=== PATIENT | male | born 1930 | race Caucasian/White ===

== ENCOUNTER 2017-09-20 10:35 | Inpatient (IN) | payer OTHER, BC ==
[~2017-09-20] VITALS: Ht 190.5 cm; Wt 97.0 kg
[2017-09-20 11:20] LABS: Basophils # (auto) 0.1 uL; Basophils % (auto) 0.8 % (0.0-2.0); Eosinophils # (auto) 0 uL; Eosinophils % (auto) 0.6 % (0.0-7.0); Hematocrit 38.3 % (41.0-53.0); Hemoglobin 12.6 g/dL (13.5-17.5); Lymphocytes # (auto) 1.4 uL; Lymphocytes % (auto) 17.5 % (10.0-50.0); Mean Corpuscular Hemoglobin 33.1 pg (28.0-32.0); Mean Corpuscular Hgb Conc. 32.8 g/dL (32.0-36.0); Mean Corpuscular Volume 100.6 fL (80.0-100.0); Monocytes # (auto) 0.9 uL; Monocytes % (auto) 11.4 % (0.0-12.0); Neutrophils # (auto) 5.5 uL; Neutrophils % (auto) 69.7 % (37.0-80.0); Nucleated Red Blood Cells % 0.1 %; Platelet Count (auto) 204 10^3/uL (140-450); Red Cell Distribution Width 15.8 % (11.8-14.3); White Blood Cell 7.9 10^3/uL (4.4-10.8)
[2017-09-20 12:04] LABS: Albumin 3.1 g/dL (3.4-5.0); BUN/Creatinine Ratio 31.3; Bilirubin, Total 0.6 mg/dL (0.2-1.0); Calcium 8.5 mg/dL (8.5-10.1); Potassium 3.9 mmol/L (3.5-5.1); Total Protein 6.3 g/dL (6.4-8.2)
[2017-09-20] MEDS ORDERED: FUROSEMIDE 40 MG/4 ML VIAL IV ONE (15:15)
[2017-09-20] MEDS ORDERED: ONDANSETRON HCL 4 MG/2 ML VIAL IV PRN (22:45)
[2017-09-20] MEDS ORDERED: ALBUTEROL SULF 2.5 MG/0.5ML(0.5%) NEB SOLN NEB PRN (22:45)
[2017-09-20] MEDS ORDERED: IPRATROPIUM BROM 0.5 MG/2.5ML INH SOL NEB PRN (22:45)
[2017-09-20] MEDS ORDERED: MORPHINE SULFATE 8mg/ml INJ SDV IV PRN (22:45)
[2017-09-20] MEDS ORDERED: HYDROcodone-ACET 5/325MG TAB PO PRN (22:45)
[2017-09-20] MEDS ORDERED: ACETAMINOPHEN 500 MG TAB PO PRN (22:45)
[2017-09-21] VITALS (8 sets, daily range): BP systolic 113–142; BP diastolic 52–70
[2017-09-21 03:54] LABS: Urine Bacteria NONE SEEN /hpf (None Seen); Urine Blood Negative /uL (Negative); Urine Specific Gravity 1.007 (1.001-1.035); Urine WBC <1 /hpf (0 - 3)
[2017-09-21 06:50] LABS: Basophils # (auto) 0 uL; Basophils % (auto) 0.6 % (0.0-2.0); Eosinophils # (auto) 0 uL; Eosinophils % (auto) 0.6 % (0.0-7.0); Hematocrit 38.8 % (41.0-53.0); Hemoglobin 12.9 g/dL (13.5-17.5); Lymphocytes # (auto) 1.6 uL; Lymphocytes % (auto) 21.1 % (10.0-50.0); Mean Corpuscular Hemoglobin 33.5 pg (28.0-32.0); Mean Corpuscular Hgb Conc. 33.4 g/dL (32.0-36.0); Mean Corpuscular Volume 100.4 fL (80.0-100.0); Monocytes # (auto) 0.7 uL; Monocytes % (auto) 9.7 % (0.0-12.0); Neutrophils # (auto) 5.2 uL; Nucleated Red Blood Cells % 0.1 %; Platelet Count (auto) 183 10^3/uL (140-450); Red Blood Cells 3.86 10^6/uL (4.5-5.90); Red Cell Distribution Width 15.8 % (11.8-14.3); White Blood Cell 7.6 10^3/uL (4.4-10.8)
[2017-09-21 07:01] LABS: Albumin 3.2 g/dL (3.4-5.0); BUN/Creatinine Ratio 33.8; Potassium 4.1 mmol/L (3.5-5.1)
[2017-09-21 07:03] LABS: Bilirubin, Total 0.7 mg/dL (0.2-1.0); Total Protein 6.4 g/dL (6.4-8.2)
[2017-09-21 09:24] LABS: INR 2.01 (0.9-1.15); Partial Thromboplastin Time 30.4 sec (23.78-33.04); Prothrombin Time 20.7 sec (9.27-12.13)
[2017-09-21] MEDS: LISINOPRIL 20 MG TAB PO SCH (10:29)
[2017-09-21] MEDS: FUROSEMIDE 40 MG/4 ML VIAL IV SCH (10:29)
[2017-09-21] MEDS: LOSARTAN POTASSIUM 25 MG TAB PO SCH (10:30)
[2017-09-21] MEDS ORDERED: VANCOMYCIN PER PHARMACY 0 MG IV SCH (12:15)
[2017-09-21] MEDS ORDERED: VANCOMYCIN 1GM/250ML 250 ML IV ONE (12:30)
[2017-09-21] MEDS: CLINDAMYCIN 300MG IV 50 ML IV SCH ×2 (15:00→21:35)
[2017-09-21] MEDS ORDERED: WARFARIN SODIUM 2 MG TAB PO ONE (17:00)
[2017-09-21] MEDS ORDERED: LISI40TA PO (20:03)
[2017-09-21] MEDS ORDERED: FURO40TA4 PO (20:04)
[2017-09-21] MEDS ORDERED: LISI-646 PO (20:04)
[2017-09-21] MEDS ORDERED: LOSA25TA9 PO (20:05)
[2017-09-21] MEDS ORDERED: WARF5TAB71 PO (20:05)
[2017-09-21] MEDS ORDERED: METO-169 PO (20:06)
[2017-09-21] MEDS ORDERED: GUAI100S6 PO (20:07)
[2017-09-21] MEDS ORDERED: DIPH-506 PO (20:07)
[2017-09-22 05:06] VITALS: BP 140/79
[2017-09-22] MEDS: CLINDAMYCIN 300MG IV 50 ML IV SCH ×2 (05:24→14:00)
[2017-09-22 06:18] LABS: INR 2.16 (0.9-1.15); Partial Thromboplastin Time 33.4 sec (23.78-33.04); Prothrombin Time 22.1 sec (9.27-12.13)
[2017-09-22 06:23] LABS: Basophils # (auto) 0 uL; Basophils % (auto) 0.6 % (0.0-2.0); Eosinophils # (auto) 0 uL; Eosinophils % (auto) 0.6 % (0.0-7.0); Monocytes # (auto) 0.9 uL
[2017-09-22 06:27] LABS: Hematocrit 35.9 % (41.0-53.0); Hemoglobin 12.1 g/dL (13.5-17.5); Lymphocytes # (auto) 1.4 uL; Lymphocytes % (auto) 18.4 % (10.0-50.0); Mean Corpuscular Hemoglobin 33.7 pg (28.0-32.0); Mean Corpuscular Hgb Conc. 33.8 g/dL (32.0-36.0); Mean Corpuscular Volume 99.6 fL (80.0-100.0); Monocytes % (auto) 11.6 % (0.0-12.0); Neutrophils # (auto) 5.2 uL; Neutrophils % (auto) 68.8 % (37.0-80.0); Platelet Count (auto) 165 10^3/uL (140-450); Red Blood Cells 3.61 10^6/uL (4.5-5.90); Red Cell Distribution Width 15.6 % (11.8-14.3); White Blood Cell 7.6 10^3/uL (4.4-10.8)
[2017-09-22 06:33] LABS: Potassium 4.1 mmol/L (3.5-5.1)
[2017-09-22 06:40] LABS: Calcium 8.6 mg/dL (8.5-10.1)
[2017-09-22 06:44] LABS: BUN/Creatinine Ratio 39.3
[2017-09-22 08:00] VITALS: BP 129/64
[2017-09-22] MEDS: FUROSEMIDE 40 MG/4 ML VIAL IV SCH (10:00)
[2017-09-22] MEDS ORDERED: VANCOMYCIN 1GM/250ML 250 ML IV SCH (10:00)
[2017-09-22] MEDS: LOSARTAN POTASSIUM 25 MG TAB PO SCH (10:01)
[2017-09-22] MEDS: LISINOPRIL 20 MG TAB PO SCH (10:02)
[2017-09-22 12:09] VITALS: BP 129/64
[2017-09-22 13:00] VITALS: BP 124/78
[2017-09-22] MEDS ORDERED: WARFARIN SODIUM 2 MG TAB PO ONE (17:00)
== END 2017-09-22 14:48 | disposition home or self-care (01) | DRG 592 ==
LOC: ER 10:45 → TELE-WESTW 10:46
PROVIDERS: ADMIT Nurse Practitioner Family; ATTEND Internal Medicine
DX: L97.828 Non-pressure chronic ulcer of other part of left lower leg with other specified severity (principal); I50.43 Acute on chronic combined systolic (congestive) and diastolic (congestive) heart failure; D64.9 Anemia, unspecified; J44.9 Chronic obstructive pulmonary disease, unspecified; W22.8XXA Striking against or struck by other objects, initial encounter; I11.0 Hypertensive heart disease with heart failure; Z87.891 Personal history of nicotine dependence; Z95.0 Presence of cardiac pacemaker; Z88.0 Allergy status to penicillin; Z86.718 Personal history of other venous thrombosis and embolism; Y93.89 Activity, other specified; Y92.89 Other specified places as the place of occurrence of the external cause; Y99.8 Other external cause status
CPT/HCPCS: 36415; 71046; 80048; 80053; 80202; 81001; 82962; 83735; 83880; 84443; 84484; 85025; 85610; 85730; 87040; 87077; 87186; 87205; 93005; 93306; 93926; 93970; 96374; J3490

== ENCOUNTER 2018-01-19 10:01 | Emergency (ER) | payer BC, OTHER ==
[~2018-01-19] VITALS: Ht 182.9 cm; Wt 122.0 kg
[~2018-01-19 10:01] MED LIST: DIPH-506 PO; FURO40TA4 PO; GUAI100S6 PO; LISI-646 PO; LISI40TA PO; LOSA25TA40 PO; METO-169 PO; WARF5TAB71 PO
[2018-01-19 11:12] LABS: Basophils # (auto) 0.1 uL; Eosinophils # (auto) 0 uL; Eosinophils % (auto) 0.4 % (0.0-7.0)
[2018-01-19 11:14] LABS: Basophils % (auto) 1.3 % (0.0-2.0); Hematocrit 38.8 % (41.0-53.0); Hemoglobin 12.5 g/dL (13.5-17.5); Lymphocytes # (auto) 0.9 uL; Lymphocytes % (auto) 13.8 % (10.0-50.0); Mean Corpuscular Hemoglobin 32.8 pg (28.0-32.0); Mean Corpuscular Hgb Conc. 32.3 g/dL (32.0-36.0); Mean Corpuscular Volume 101.5 fL (80.0-100.0); Monocytes # (auto) 0.8 uL; Monocytes % (auto) 10.9 % (0.0-12.0); Neutrophils % (auto) 73.6 % (37.0-80.0); Platelet Count (auto) 195 10^3/uL (140-450); Red Blood Cells 3.82 10^6/uL (4.5-5.90); Red Cell Distribution Width 15.9 % (11.8-14.3); White Blood Cell 6.9 10^3/uL (4.4-10.8)
[2018-01-19 11:49] LABS: Albumin 3.5 g/dL (3.4-5.0); BUN/Creatinine Ratio 35.4; Bilirubin, Total 0.8 mg/dL (0.2-1.0); Calcium 9.1 mg/dL (8.5-10.1); Potassium 4.6 mmol/L (3.5-5.1); Total Protein 6.8 g/dL (6.4-8.2)
[2018-01-19] MEDS ORDERED: FUROSEMIDE 40 MG/4 ML VIAL IV ONE (13:30)
[2018-01-19] MEDS ORDERED: LEVOFLOXACIN 750MG 150 ML IV ONE (13:45)
[2018-01-19] MEDS ORDERED: METOPROLOL TARTRATE 50 MG TAB PO ONE (13:45)
[2018-01-19 14:22] LABS: INR 1.96 (0.9-1.15); Prothrombin Time 20.2 sec (9.27-12.13)
[2018-01-19 14:41] VITALS: BP 107/54
== END 2018-01-19 15:02 | disposition short-term general hospital (02) ==
LOC: EDBD 10:01 → ER 10:01
DX: I11.0 Hypertensive heart disease with heart failure (principal); I50.9 Heart failure, unspecified; J44.9 Chronic obstructive pulmonary disease, unspecified; Z86.718 Personal history of other venous thrombosis and embolism; Z95.0 Presence of cardiac pacemaker
CPT/HCPCS: 36415; 71045; 80053; 83605; 83880; 84484; 85025; 85610; 87040; 93005; 94761; 96365; 96375; 99285; J1940; J1956